=== PATIENT | female | born 1925 | race Caucasian/White ===

== ENCOUNTER → 2016-08-05 | Outpatient (CLI) | payer MEDICARE, BC | END | disposition home or self-care (01) | LOC: GMAB 10:32 | PROVIDERS: ATTEND Family Medicine | DX: M25.50 Pain in unspecified joint (principal) ==

== ENCOUNTER → 2016-08-31 | Outpatient (CLI) | payer MEDICARE, BC ==
--- NOTE | 2016-09-01 10:12 | MRI ---
EXAM DESCRIPTION: Brain w/oContrast CLINICAL HISTORY: 89 years, Female, TRANSIENT CEREBRAL ISCHEMIC ATTACK, UNSPECIFIED , upper extremity weakness COMPARISON: None. FINDINGS: Standard triplanar sequences without contrast material. Diffusion-weighted sequence does not show acute infarct. Gradient sequence does not show hemorrhage. Mildly prominent ventricles and sulci probably age-appropriate. Mild microischemic change periventricular white matter, within normal limits for age. Small area white matter changes also present in the bree bilaterally, fairly symmetric. This is suggestive of an episode of osmotic demyelinization IMPRESSION: 1. No acute infarct, hemorrhage or mass 2. Mild atrophy and microischemic ischemic change, probably age-appropriate 3. Mild white matter changes in the bree is probably from a prior episode of osmotic demyelinization Electronically signed by: Gwyn Cortez MD 09/01/2016 10:10 AM CDT
--- NOTE | 2016-09-01 15:54 | MAM ---
EXAM DESCRIPTION: Screening Mammogram, bilateral CLINICAL HISTORY: 89 yearsFemaleSCREENINGpostmenopausal. No hormone replacement. COMPARISON: Digital screening bilateral examinations 04/04/2014 and 04/03/2013.. No prior reports available. TECHNIQUE: Bilateral CC and MLO projection full-field images, digital screening mammographic technique. CAD was utilized. FINDINGS: The breast parenchymal density pattern is: Scattered areas of fibroglandular density. No skin thickening or nipple retraction focal mass density with well-circumscribed and lobulated borders approximately 5 mm in greatest diameter in the middle third of the left breast at approximately the 300 clock position. Not associated microcalcifications. Slightly enlarged since the examination in 2014 and slight change in border characteristics. Bilateral small calcifications. No focal asymmetry , and no suspicious microcalcifications bilaterally. No new mass density in the right breast. IMPRESSION: BI-RADS CATEGORY: 0 - INCOMPLETE- Need additional imaging evaluation. FOLLOW-UP: Recall for additional imaging: Digital orthogonal spot magnification and full field LM image, region of interest in the left breast with follow-up targeted left breast ultrasound. Written communication explaining the results and follow-up will be mailed to the patient and referring care provider. Electronically signed by: Lorenzo Lee MD 09/01/2016 3:53 PM CDT Workstation: [id number]
== END | disposition home or self-care (01) ==
LOC: MRI 13:40
PROVIDERS: ATTEND Family Medicine
DX: Z12.31 Encounter for screening mammogram for malignant neoplasm of breast (principal); G45.9 Transient cerebral ischemic attack, unspecified
CPT/HCPCS: 70551; G0202

== ENCOUNTER → 2016-09-03 | Outpatient (CLI) | payer MEDICARE ==
--- NOTE | 2016-09-04 10:34 | MAM ---
EXAM DESCRIPTION: Diagnostic Mammo, left CLINICAL HISTORY: 89 yearsFemaleABNORMAL MAMMO. Mass in the left breast. COMPARISON: Screening digital bilateral examinations 08/31/2016, 04/04/2014 and 04/03/2013. Targeted left breast ultrasound following this examination.. TECHNIQUE: Digital spot compression of the region of interest in the left breast CC and LM projections. Digital full field left breast LM image. CAD was utilized. FINDINGS: Partially well-circumscribed mass density minimally lobulated borders and possible small extension in the 200 clock position of the middle third of the left breast. Dimensions are 4 x 5 mm. No microcalcifications. Ultrasound. Mostly well circumscribed hypoechoic to anechoic mass at the 300 clock position 4 cm from the nipple. Measuring approximately 4.4 x 3.7 mm with small hypoechoic extension. Parallel orientation and nonvascular, possible wall thickening. Mixed posterior acoustic features. IMPRESSION: BI-RADS CATEGORY: 4A - LOW SUSPICION FOR MALIGNANCY. Surgical consultation and tissue diagnosis should be considered. This would be amenable to ultrasound-guided biopsy, stereotactic guided biopsy, or needle wire localization by mammography and open biopsy. The results and follow-up were discussed in person with the patient. Communication explaining the results and followup will be mailed to the patient and referring care provider. CRITICAL COMMUNICATION: The critical value was discussed directly by phone with Dr. Yves Bobo at approximately 1021 hours, on 09/04/2016. Electronically signed by: Lorenzo Lee MD 09/04/2016 10:32 AM CDT Workstation: [id number]
--- NOTE | 2016-09-04 10:39 | US ---
EXAM DESCRIPTION: Breast, left CLINICAL HISTORY: 89 yearsFemaleABNORMAL left breast MAMMO COMPARISON: Diagnostic digital left breast mammographic examination on this visit. Bilateral screening digital mammographic evaluation 2016. TECHNIQUE: Transcutaneous scanning of the left breast utilizing two-dimensional and Doppler modes. Scanning performed by the glass enamel mixer and Dr. Lee. FINDINGS: Mostly well circumscribed hypoechoic to anechoic mass at the 300 clock position 4 cm from the nipple. Measuring approximately 4.4 x 3.7 mm with small hypoechoic extension. Parallel orientation and nonvascular, possible wall thickening. Mixed posterior acoustic features. IMPRESSION: BI-RADS Category 4A: Low suspicion for malignancy. Please see diagnostic left breast digital mammographic examination and report on the same visit. Critical communication: The critical value was discussed directly by phone with Dr. Yves Bobo at approximately 1021 hours, on 09/04/2016. Electronically signed by: Lorenzo Lee MD 09/04/2016 10:38 AM CDT Workstation: [id number]
== END | disposition home or self-care (01) ==
LOC: MAMMO 15:22
PROVIDERS: ATTEND Family Medicine
DX: R92.8 Other abnormal and inconclusive findings on diagnostic imaging of breast (principal); N63 Unspecified lump in breast; R55 Syncope and collapse
CPT/HCPCS: 76641; 77065; 93225; G0206

== ENCOUNTER → 2016-09-14 | Outpatient (CLI) | payer MEDICARE ==
--- NOTE | 2016-09-14 09:44 | OP ---
DATE OF PROCEDURE: 09/14/16 PREOPERATIVE DIAGNOSIS: 1. Left breast lesion, nonechogenic and irregular margin. POSTOPERATIVE DIAGNOSIS: 1. Left breast lesion, nonechogenic and irregular margin. PROCEDURE: 1. Sonographically guided aspiration, left breast cyst. SURGEON: Paul Medina MD. TIRE BEADER MAKER: None. ANESTHESIA: Local infiltration of 1% Lidocaine. INDICATION: The patient is an 89-year-old female who on routine mammography was found to have a small lesion which was nonechogenic at the 3 o'clock position of the left breast. It was thought to have a thickened wall. She was brought to the [facility] first for aspiration and needle core biopsy. FINDINGS: The lesion completely resolved with aspiration with a 22 gauge needle. PROCEDURE: The patient was placed in the supine position with the left shoulder raised with a pillow. The left breast was examined. In the 3 o'clock position , the lesion was identified . The breast lateral to the ultrasound probe was prepped with Betadine and draped. Local infiltration of anesthesia was obtained with 1% lidocaine. A 22 gauge needle was introduced under direct vision using the ultrasound device into the cyst. It was aspirated and completely collapsed. The fluid was sent for cytologic evaluation. A band-aid was applied. There was no bleeding. The patient tolerated the procedure well. She will followup in my office in three days. #[id number] [facility] HOSPITALVeronica
--- NOTE | 2016-09-14 16:42 | US ---
EXAM DESCRIPTION: Biopsy/Needle Guidance CLINICAL HISTORY: 89 yearsFemaleABNORMAL MAMMO; LEFT BREAST COMPARISON: Diagnostic ultrasound of the left breast on 09/03/2016. TECHNIQUE: The procedure was performed by Dr. Farmer. Verbal and written consent was obtained. The lesion was again localized at the 300 clock position of the left breast 4 cm from the nipple. Multiple needle passes were made. FINDINGS: The hypoechoic lesion measures 5.1 x 4.3 x 3.6 mm. Echogenic needle is visualized. After the needle passes were made, the lesion was not seen. Minimal decreased echoes in this location. IMPRESSION: Successful, ultrasound-guided fine-needle biopsy of left breast lesion. Please refer to surgical report. Pathology results pending. Electronically signed by: Lorenzo Lee MD 09/14/2016 4:26 PM CDT
== END | disposition home or self-care (01) ==
LOC: US 08:24
PROVIDERS: ATTEND Surgery
PROC: 0HBU3ZX Excision of Left Breast, Percutaneous Approach, Diagnostic (ICD-10-PCS; principal; 2016-09-14)
DX: R92.8 Other abnormal and inconclusive findings on diagnostic imaging of breast (principal)